=== PATIENT | male | born 1995 | race Caucasian/White ===

== ENCOUNTER 2019-01-07 14:59 | Emergency (ER) | payer SELFPAY ==
--- NOTE | 2019-01-07 17:13 | RADIOLOGY REPORT (SQ) ---
EXAM DESCRIPTION: FOOT RIGHT COMPLETE COMPLETED DATE/TIME: 01/07/2019 5:03 pm REASON FOR STUDY: injury to right foot COMPARISON: None. NUMBER OF VIEWS: Three views. TECHNIQUE: AP, lateral and oblique radiographic images acquired of the right foot. LIMITATIONS: None. FINDINGS: MINERALIZATION: Normal. BONES: Moderately displaced comminuted fractures of the 2nd and 3rd metatarsal distal diaphyses with a minimally displaced comminuted fracture of the 4th metatarsal neck. JOINTS: No effusions. SOFT TISSUES: Circumferential soft tissue swelling of the forefoot. OTHER: No other significant finding. IMPRESSION: Comminuted fractures of the 2nd, 3rd, and 4th metatarsals. TECHNICAL DOCUMENTATION: JOB ID: [id number] [employer]- All Rights Reserved Reading location - IP/workstation name: [email or web address]
[2019-01-07] MEDS ORDERED: IBUPROFEN 800 MG TABLET PO ONE (17:37)
[2019-01-07] MEDS ORDERED: HYDROCODONE/ACETAMINOPHEN 5-325 MG TABLET PO ONE (17:37)
--- NOTE | 2019-01-07 17:43 | ER Document Report ---
ED General - General Chief Complaint: Foot Injury Stated Complaint: FOOT INJURY Time Seen by Provider: 01/07/19 16:07 Mode of Arrival: Ambulatory Information source: Patient TRAVEL OUTSIDE OF THE [place] IN LAST 30 DAYS: No - HPI Patient complains to provider of: Right foot injury Onset: Yesterday Onset/Duration: Sudden Severity: Severe Pain Level: 5 Associated symptoms: None Exacerbated by: Movement, Walking, Other - Weight-bearing Relieved by: Denies Similar symptoms previously: No Recently seen / treated by doctor: No Notes: 23-year-old male coming in today with a right foot injury. States last night he fell down multiple stairs and injured his right foot. Can barely bear any kind of weight on it. No other injuries. - Related Data Allergies/Adverse Reactions: No Known Allergies Allergy (Verified 01/07/19 15:12) Past Medical History - General Information source: Patient - Social History Smoking Status: Current Every Day Smoker Frequency of alcohol use: None Drug Abuse: None Family History: Reviewed & Not Pertinent Patient has suicidal ideation: No Patient has homicidal ideation: No Renal/ Medical History: Denies: Hx Peritoneal Dialysis Review of Systems - Review of Systems Notes: Constitutional: No fevers. No chills. EENT: No eye redness. No eye pain. No ear pain. No sore throat. Cardiovascular: No chest pain. No palpitations. Respiratory: No cough. No shortness of breath. No respiratory distress. Gastrointestinal: No abdominal pain. No nausea, vomiting, or diarrhea. Genitourinary: Atraumatic. No lesions. No pain. No discharge. Musculoskeletal: Positive right foot pain and swelling Skin: No rash or lesions. Lymphatic: No swollen lymph nodes. Neurologic: No headache. No syncope. Psychiatric: No suicidal or homicidal ideation. Physical Exam - Vital signs Vitals: Temp Pulse Resp BP Pulse Ox 97.8 F 76 18 115/92 H 97 01/07/19 15:14 01/07/19 15:14 01/07/19 15:14 01/07/19 15:14 01/07/19 15:14 - Notes Notes: General: Well-developed, well-nourished. In no acute distress. Non-toxic appearing. Cardiac: Well-perfused. Regular rate and rhythm. No murmurs, rubs, or gallops. Pulmonary: No respiratory distress. No cyanosis. Bilateral lung landaver[place] are clear to auscultation. Abdominal: Non-distended. Non-rigid. Bowels sounds are present in all four quadrants. No guarding or rebound. HEENT: Head is atraumatic. Conjunctivae not reddened. No tearing. PERRL. EOMI. Orbits atraumatic. No periorbital swelling or erythema. Oropharynx is without erythema, swelling, or exudates. Neck: Supple. No adenopathy. No meningismus. Dermatologic: Warm with good turgor. No rash. Atraumatic. Chest: Atraumatic. No chest wall tenderness to palpation. Musculoskeletal: Right foot and ankle are examined. There is moderate soft tissue swelling throughout the foot. Bruising present throughout. No obvious mild deformities in the metatarsal heads. Distal neurovascular exam is intact. Ankle is nontender, nonswollen, otherwise unaffected. Genitourinary: Examination deferred Neurologic: No gross neurologic deficits. Psychiatric: Normal mood. Course - Vital Signs Vital signs: Temp Pulse Resp BP Pulse Ox 97.8 F 76 18 115/92 H 97 01/07/19 15:14 01/07/19 15:14 01/07/19 15:14 01/07/19 15:14 01/07/19 15:14 - Diagnostic Test Radiology reviewed: Reports reviewed - Consults robbi Time consulted: 17:43 Reason for consultation: 01/07/19 17:43 multiple metatarsal fractures Consulted provider: follow-up in office - Short leg posterior splint of the right foot and ankle. Crutches. Follow-up in the office tomorrow Discharge - Discharge Clinical Impression: Metatarsal bone fracture Qualifiers: Encounter type: initial encounter Metatarsal bone: unspecified metatarsal Fracture type: closed Fracture alignment: displaced Laterality: right Qualified Code(s): S92.301A - Fracture of unspecified metatarsal bone(s), right foot, initial encounter for closed fracture Condition: Good Disposition: HOME, SELF-CARE Instructions: Foot Fracture ([facility]), Splint Pending Casting ([facility]), Use of Crutches ([facility]) Additional Instructions: It is imperative that you do not bear any weight on this foot as it will worsen the fractures of the bones in your feet. Use the crutches only. You can take ibuprofen [id number] for pain and swelling. You may also use the prescribed narcotic medications understanding cannot drive a vehicle or operate machinery while taking it. Please be sure as we discussed to call the orthopedic doctor's office in the morning. Let them know that your patient at [facility] and that Dr. Serrano was patent prosecution paralegal for us the day that you were seen. Make sure they understand that the ER provider actually spoke to Dr. Serrano and that he suggested that you come in to be seen. Prescriptions: Hydrocodone/Acetaminophen [[place] 5-325 mg Tablet] 1 tab PO Q6HP PRN #15 tablet PRN Reason: Referrals: NAN SERRANO MD [ACTIVE STAFF] - Follow up tomorrow
[2019-01-07] MEDS ORDERED: HYDROCODONE/ACETAMINOPHEN 5-325 MG (6 TAB/ER DISP) PO PRN (17:45)
[2019-01-07 18:03] VITALS: BP 138/86
== END 2019-01-07 18:21 | disposition home or self-care (01) ==
LOC: ER 14:59
DX: S92.301A Fracture of unspecified metatarsal bone(s), right foot, initial encounter for closed fracture (principal); W10.9XXA Fall (on) (from) unspecified stairs and steps, initial encounter; F17.200 Nicotine dependence, unspecified, uncomplicated
CPT/HCPCS: 99284

== ENCOUNTER 2020-03-07 18:20 | Emergency (ER) | payer SELFPAY ==
[2020-03-07 18:53] VITALS: BP 138/83
[2020-03-07 20:45] LABS: APPEARANCE,URINE CLEAR; BILIRUBIN,URINE NEGATIVE (NEGATIVE); COLOR,URINE YELLOW; GLUCOSE, URINE 50 mg/dL (NEGATIVE); KETONES,URINE NEGATIVE (NEGATIVE); LEUKOCYTE ESTERASE,URINE NEGATIVE (NEGATIVE); NITRITE,URINE NEGATIVE (NEGATIVE); PROTEIN,URINE 30 mg/dL (NEGATIVE); URINE SPECIFIC GRAVITY 1.017
[2020-03-07] MEDS ORDERED: ONDANSETRON HCL INJ/PF 4 MG/2 ML SDV IV ONE (21:20)
[2020-03-07] MEDS ORDERED: MORPHINE SULFATE 10 MG/ML INJ IV ONE (21:21)
[2020-03-07] MEDS ORDERED: NORMAL SALINE 1000 ML 1,000 ML IV ONE ×2 (21:21→23:36)
--- NOTE | 2020-03-07 21:28 | ER Document Report ---
ED GI/ - General Chief Complaint: Nausea/Vomiting Stated Complaint: NAUSEA Time Seen by Provider: 03/07/20 20:53 Notes: CHIEF COMPLAINT: Abdominal pain and vomiting HPI: 24-year-old male presenting to the emergency department complaining of nausea vomiting over the last week 4-5 episodes daily. Reports onset of generalized abdominal pain 2 days ago with a fever up to 102. Has not had a bowel movement in a week. Has been able to urinate. Patient denies drug or alcohol use. Denies headache denies cough. Denies shortness of breath. No history of abdominal surgeries ROS: See HPI - all other systems were reviewed and are otherwise negative Constitutional: + fever Eyes: no drainage, no blurred vision ENT: no runny nose, no sore throat Cardiovascular: no chest pain Resp: no SOB, no cough GI: + vomiting, no diarrhea, + abdominal pain : no dysuria Integumentary: no rash Allergy: no hives Musculoskeletal: no extremity pain or swelling Neurological: no numbness/tingling, no weakness MEDICATIONS: I agree with the patient medications as charted by the RN. ALLERGIES: I agree with the allergies as charted by the RN. PAST MEDICAL HISTORY/PAST SURGICAL HISTORY: Reviewed and agree as charted by RN. SOCIAL HISTORY: Reviewed and agree as charted by RN. FAMILY HISTORY: No significant familial comorbid conditions directly related to patient complaint EXAM: Reviewed vital signs as charted by RN. CONSTITUTIONAL: Alert and oriented and responds appropriately to questions. Well-appearing; well-nourished HEAD: Normocephalic; atraumatic EYES: PERRL; Conjunctivae clear, sclerae non-icteric ENT: normal nose; no rhinorrhea; moist mucous membranes; pharynx without lesions noted, no uvula edema or deviation, no tonsillar hypertrophy, phonation normal NECK: Supple without meningismus; non-tender; no cervical lymphadenopathy, no masses CARD: RRR; no murmurs, no clicks, no rubs, no gallops; symmetric distal pulses RESP: Normal chest excursion without splinting or tachypnea; breath sounds clear and equal bilaterally; no wheezes, no rhonchi, no rales, pulse oximetry 98% on room air not hypoxic ABD/GI: Normal bowel sounds; non-distended; soft, moderate tenderness with guarding in both the right upper quadrant and left lower quadrant on palpation; no palpable organomegaly or masses. BACK: The back appears normal and is non-tender to palpation, there is no CVA tenderness EXT: Normal ROM in all joints; non-tender to palpation; no cyanosis, no effusions, no edema SKIN: Normal color for age and race; warm; dry; good turgor; no acute lesions noted NEURO: Moves all extremities equally; Motor and sensory function intact PSYCH: The patient's mood and manner are appropriate. Grooming and personal hygiene are appropriate. MDM: 24-year-old male presenting for nausea vomiting over the last week abdominal pain for 2 days subjective fever 2 days ago is afebrile here. Does have tenderness in the right upper and left lower quadrants. Reports loss of taste over the last several days as well will obtain COVID testing will obtain CT imaging to evaluate for intra-abdominal surgical or infectious pathology. Hydrate patient treat symptoms check lab work TRAVEL OUTSIDE OF THE [place] IN LAST 30 DAYS: No - Related Data Allergies/Adverse Reactions: No Known Allergies Allergy (Verified 01/07/19 15:12) Past Medical History - Social History Smoking Status: Current Every Day Smoker Chew tobacco use (# tins/day): No Frequency of alcohol use: None Drug Abuse: None Family History: Reviewed & Not Pertinent Renal/ Medical History: Denies: Hx Peritoneal Dialysis Physical Exam - Vital signs Vitals: Temp Pulse Resp BP Pulse Ox 98.5 F 80 16 138/83 H 99 03/07/20 18:51 03/07/20 18:51 03/07/20 18:51 03/07/20 18:51 03/07/20 18:51 Course - Re-evaluation Re-evalutation: 03/08/20 01:04 CT imaging does not show acute abnormalities that would define patient's pain. This may be from his vomiting. He does definitely appear dehydrated this was addressed in the emergency department. He is currently tolerating oral fluids. He will be considered a person under investigation for COVID-19 and self ibis rantine at home. I will write the patient for Zofran for nausea. Return for worsening condition - Vital Signs Vital signs: Temp Pulse Resp BP Pulse Ox 98.5 F 80 16 138/83 H 99 03/07/20 18:51 03/07/20 18:51 03/07/20 18:51 03/07/20 18:51 03/07/20 18:51 - Laboratory Result Diagrams: 03/07/20 21:55 03/07/20 21:55 Laboratory results interpreted by me: 03/07/20 03/07/20 03/07/20 20:20 21:55 21:55 WBC 13.6 H RBC 6.02 H Hgb 18.9 H Hct 53.8 H [place] % (Auto) 17.6 H Absolute Neuts (auto) 9.2 H Absolute Monos (auto) 2.4 H Sodium 130.0 L Chloride 77 L Carbon Dioxide 40 H* BUN 53 H Creatinine 1.47 H Est GFR (MDRD) Non-Af 58 L Glucose 117 H Calcium 10.4 H Total Protein 8.6 H Albumin 5.2 H Urine Protein 30 H Urine Glucose (UA) 50 H Urine Urobilinogen 4.0 H Discharge - Discharge Clinical Impression: Dehydration, Person under investigation for COVID-19 Vomiting Qualifiers: Vomiting type: unspecified Vomiting Intractability: non-intractable Nausea presence: with nausea Qualified Code(s): R11.2 - Nausea with vomiting, unspecified Abdominal pain Qualifiers: Abdominal location: right upper quadrant Qualified Code(s): R10.11 - Right upper quadrant pain Condition: Stable Disposition: HOME, SELF-CARE Additional Instructions: You are considered a person under investigation for COVID-19 at this time. Self quarantine at home until you have a test result. Results usually come through in about 2 to 5 days. You should receive a call from the hospital about your results. Take Zofran for any recurrent nausea or vomiting. It did appear that you were dehydrated today, make sure you push fluids at home. Return for worsening condition Prescriptions: Ondansetron [Zofran Odt 4 mg Tablet] 1 - 2 tab PO Q4H PRN #15 tab.rapdis PRN Reason: For Nausea/Vomiting Forms: Return to Work Referrals: TRESA CORLEY DO [NO LOCAL MD] - Follow up as needed
[2020-03-07 22:18] LABS: ABSOLUTE BASOPHILS # (AUTO) 0.1 10^3/uL (0.0-0.2); ABSOLUTE EOSINOPHILS # (AUTO) 0.1 10^3/uL (0.0-0.6); ABSOLUTE LYMPHOCYTES (AUTO) 1.9 10^3/uL (0.5-4.7); ABSOLUTE MONOCYTES (AUTO) 2.4 10^3/uL (0.1-1.4); ABSOLUTE NEUT (AUTO) 9.2 10^3/uL (1.7-8.2); BASOPHILS % (AUTO) 0.4 % (0-2); EOSINOPHILS % (AUTO) 0.7 % (0-6); HEMATOCRIT 53.8 % (37.9-51.0); HEMOGLOBIN 18.9 g/dL (13.5-17.0); MEAN CORPUSCULAR HEMOGLOBIN 31.4 pg (27.0-33.4); MEAN CORPUSCULAR HGB CONC 35.1 g/dL (32.0-36.0); MEAN CORPUSCULAR VOLUME 89 fl (80-97); MONOCYTES % (AUTO) 17.6 % (3-13); PLATELET COUNT 411 10^3/uL (150-450); RED BLOOD COUNT 6.02 10^6/uL (4.35-5.55); SEGMENTED NEUTROPHILS % (AUTO) 67.3 % (42-78); TOTAL CELLS COUNTED % (AUTO) 100 %; WHITE BLOOD COUNT 13.6 10^3/uL (4.0-10.5)
[2020-03-07 22:33] LABS: ALBUMIN 5.2 g/dL (3.5-5.0); ALKALINE PHOSPHATASE 83 U/L (38-126); ASPARTATE AMINO TRANSFERASE 36 U/L (17-59); BILIRUBIN,DIRECT 0.1 mg/dL (0.0-0.4); BILIRUBIN,TOTAL 1.1 mg/dL (0.2-1.3); BLOOD UREA NITROGEN 53 mg/dL (7-20); CALCIUM 10.4 mg/dL (8.4-10.2); CHLORIDE 77 mmol/L (98-107); GLUCOSE 117 mg/dL (75-110); POTASSIUM 3.9 mmol/L (3.6-5.0); TOTAL PROTEIN 8.6 g/dL (6.3-8.2)
[2020-03-07 22:37] LABS: ANION GAP 13 (5-19)
[2020-03-07 23:24] LABS: CARBON DIOXIDE 40 mmol/L (22-30)
--- NOTE | 2020-03-07 23:48 | RADIOLOGY REPORT (SQ) ---
CT ABDOMEN PELVIS WITH IV CONTRAST HISTORY: Right flank pain. COMPARISON: None. TECHNIQUE: CT scan of the abdomen and pelvis was performed with IV contrast. This exam was performed according to our departmental dose-optimization program, which includes automated exposure control, adjustment of the mA and/or kV according to patient size and/or use of iterative reconstruction technique. FINDINGS: The lung bases are clear. No pleural or pericardial effusions. There is no hiatal hernia. The liver, spleen, pancreas, gallbladder, adrenal glands, and kidneys are unremarkable. No urinary stones are seen. The pelvic organs are also unremarkable. The stomach and duodenum are unremarkable. No small bowel obstruction. The appendix is normal. No evidence of acute diverticulitis. No adenopathy, free fluid, or free air is identified. The aorta is normal caliber. No acute bony findings are seen. Limbus vertebra at L5. There is no pathologic body wall hernia. IMPRESSION: No acute abdominal or pelvic findings.
[2020-03-08 01:10] LABS: URINE AMPHETAMINES SCREEN NEGATIVE; URINE BARBITURATES SCREEN NEGATIVE; URINE BENZODIAZEPINES SCREEN NEGATIVE; URINE COCAINE SCREEN NEGATIVE; URINE METHADONE SCREEN NEGATIVE; URINE PHENCYCLIDINE SCREEN NEGATIVE
[2020-03-08 01:11] LABS: URINE MARIJUANA (THC) SCREEN UNCONFIRMED POSITIVE
== END 2020-03-08 01:21 | disposition home or self-care (01) ==
LOC: ER 18:20
DX: R11.2 Nausea with vomiting, unspecified (principal); R10.84 Generalized abdominal pain; R10.811 Right upper quadrant abdominal tenderness; R10.814 Left lower quadrant abdominal tenderness; E86.0 Dehydration; F17.200 Nicotine dependence, unspecified, uncomplicated; Z20.828 Contact with and (suspected) exposure to other viral communicable diseases
CPT/HCPCS: 99285; 96361; 96374; 96375; 36415; 83690; 85025; 87635; 80053; 81001; 80307; 74177; J2270; J2405; J7030; C9803